=== PATIENT | female | born 1965 | race Caucasian/White ===

== ENCOUNTER 2018-07-26 08:21 | Outpatient (CLI) | payer MEDICAID ==
[~2018-07-26 08:21] MED LIST: DIPH25CA83 PO; ERGO500014 PO; FOLI1TAB16 PO; HALO5TAB PO; LORA1TAB PO; OMEP40CA37 PO; RISP1TAB13 PO; SPIR25TA5 PO
== END 2018-07-26 23:59 | disposition home or self-care (01) ==
LOC: RAD 08:21
DX: R55 Syncope and collapse (principal); I10 Essential (primary) hypertension; Z79.899 Other long term (current) drug therapy; Z87.891 Personal history of nicotine dependence
CPT/HCPCS: 95819

== ENCOUNTER 2020-05-18 01:09 | Emergency (ER) | payer MEDICAID ==
[~2020-05-18] VITALS: Ht 154.9 cm; Wt 60.0 kg
[~2020-05-18 01:09] MED LIST changes: +OMEP40CA13 PO; -OMEP40CA37 PO
[2020-05-18] MEDS ORDERED: LORazepam 1 MG tablet PO ONE (02:15)
[2020-05-18 02:34] VITALS: BP 172/94
== END 2020-05-18 02:36 | disposition home or self-care (01) ==
LOC: ER 01:09
DX: F41.9 Anxiety disorder, unspecified (principal); F17.200 Nicotine dependence, unspecified, uncomplicated; Z79.899 Other long term (current) drug therapy
CPT/HCPCS: 99283

== ENCOUNTER 2025-01-17 08:58 | Day surgery (SDC) | payer MEDICAID ==
[~2025-01-17] VITALS: Ht 154.9 cm; Wt 54.5 kg
[~2025-01-17 08:58] MED LIST changes: +ALBUTEROL; +BISA-95; +FLUV25TA9 PO; +FLUV50TA10 PO; -FOLI1TAB16 PO; +FOLI1TAB27 PO; +GABA-1405 PO; -HALO5TAB PO; +HYDR50TA65 PO; +LACT-373 PO; +LAMO-24 PO; +LAMO100T PO; +LAMO50TA PO; +LEVO75TA7 PO; -LORA1TAB PO; +MONT-40 PO; -OMEP40CA13 PO; +PEG4000S7 PO; +PROP10TA10 PO; -RISP1TAB13 PO; -SPIR25TA5 PO
[2025-01-17 09:42] VITALS: BP 136/80; PULSE 59; RESP 18
[2025-01-17] MEDS ORDERED: propofol inj 20 ML IV ONE (10:09)
[2025-01-17 10:15] VITALS: BP 127/69; PULSE 59; RESP 12; O2SAT 99
[2025-01-17 10:25] VITALS: BP 132/53; PULSE 58; RESP 15; O2SAT 98
[2025-01-17 10:35] VITALS: BP 135/58; PULSE 59; RESP 16; O2SAT 97
[2025-01-17 10:45] VITALS: BP 142/69; PULSE 59; RESP 18; O2SAT 98
== END 2025-01-17 10:50 | disposition home or self-care (01) ==
LOC: GI LAB 08:58
PROVIDERS: ATTEND Internal Medicine Gastroenterology
DX: K21.00 Gastro-esophageal reflux disease with esophagitis, without bleeding (principal); K31.89 Other diseases of stomach and duodenum; K25.9 Gastric ulcer, unspecified as acute or chronic, without hemorrhage or perforation; J44.9 Chronic obstructive pulmonary disease, unspecified; F17.210 Nicotine dependence, cigarettes, uncomplicated; G47.30 Sleep apnea, unspecified; K74.60 Unspecified cirrhosis of liver
CPT/HCPCS: 43239; J2704; J7030; Z7512; A4620

== ENCOUNTER 2025-01-24 09:00 | Day surgery (SDC) | payer MEDICAID ==
[~2025-01-24] VITALS: Ht 154.9 cm; Wt 48.2 kg
[2025-01-24] VITALS (9 sets, daily range): BP systolic 114–142; BP diastolic 41–78; PULSE 59–73; RESP 13–17; TEMP 98.2–98.4; O2SAT 97–100
[2025-01-24] MEDS ORDERED: simethicone 40mg/0.6ml oral drops 30ml ONE (11:48)
[2025-01-24] MEDS ORDERED: propofol inj 20 ML IV ONE ×2 (12:11)
== END 2025-01-24 13:05 | disposition home or self-care (01) ==
LOC: GI LAB 09:00
PROVIDERS: ATTEND Internal Medicine Gastroenterology
DX: Z12.11 Encounter for screening for malignant neoplasm of colon (principal); K63.5 Polyp of colon; Z88.0 Allergy status to penicillin; Z79.899 Other long term (current) drug therapy
CPT/HCPCS: 45385; 82948; J2704; J7030; Z7512; C1889

== ENCOUNTER 2025-03-08 11:02 | Outpatient (CLI) | payer MEDICAID ==
[2025-03-07 14:45] LABS: CREATININE 0.80 MG/DL (0.40-0.90); TOTAL CARBON DIOXIDE 33.4 MMOL/L (24-32); eGFR 73 ML/MIN
[~2025-03-08 11:02] MED LIST changes: -PEG4000S7 PO
[2025-03-08] MEDS ORDERED: iohexol 300mg/ml 100ml inj. ONE (11:28)
--- NOTE | 2025-03-08 13:57 | RADIOLOGY REPORT ---
CT CT ABDOMEN PELVIS INDICATION: HEPATIC FIBROSIS, UNSPECIFIED EXAM DATE: 03/08/2025 11:38 AM COMPARISON: None RADIATION DOSE: CTDIvol: 9 mGy, DLP: 657 mGy*cm PROCEDURE: Helical CT images were obtained of the abdomen and pelvis with IV contrast Sagittal and co asim reconstructions are provided. ORAL CONTRAST: Yes ADDITIONAL IMAGES / REFORMATS: None All CT sca ns at this medical facility are performed using dose modulation techniques as appropriate to a perfor med exam including the following: Automated exposure control was utilized; adjustment of the MA and/o r KV according to patient size; and use of iterative reconstruction technique. FINDINGS: LUNG BASE: Normal. LIVER: Cirrhosis. GALLBLADDER AND BILIARY TREE: Gallstone. No intra- or extrahepatic biliary ductal dilation. PANCREAS: Normal. SPLEEN: Normal. BOWEL: Normal. Normal appendix. ADRENALS: Normal. KIDNEYS AND URETER: Normal. BLADDER: Normal. REPRODUCTIVE ORGANS: Normal. LYMPH NODES:No lymphadenopathy. PERITONEUM: No ascites or free air. No other fluid collection. VESSELS: Scattered atherosclerotic calcifications are noted. RETROPERITONEUM: Normal. ABDOMINAL WALL: Normal. BONES: Scattered osseous degenerative changes are noted. IMPRESSION: Severe liver cirrhosis. Cholelithiasis.
== END 2025-03-08 23:59 | disposition home or self-care (01) ==
LOC: 64 CT 11:02
PROVIDERS: ATTEND Internal Medicine Gastroenterology
DX: K80.20 Calculus of gallbladder without cholecystitis without obstruction (principal); K74.00 Hepatic fibrosis, unspecified; M47.816 Spondylosis without myelopathy or radiculopathy, lumbar region
CPT/HCPCS: 36415; 74177; 80053; Q9967